=== PATIENT | female | born 1965 | race Caucasian/White ===

== ENCOUNTER → 2019-12-19 15:10 | Outpatient (CLI) | payer OTHER, MEDICAID, SELFPAY ==
[2019-12-19 17:00] LABS: Influenza A - CEPHEID Flu A NEGATIVE (NEGATIVE); Influenza B - CEPHEID Flu B NEGATIVE (NEGATIVE)
[2019-12-21 12:15] LABS: COVID19 Sendout Not Detected (Not Detected)
== END ==
PROVIDERS: Family Provider Internal Medicine; PCP Internal Medicine; Visit Provider Family Medicine
DX: R05 Cough (principal); R06.02 Shortness of breath; R50.9 Fever, unspecified
CPT/HCPCS: 87502; 87635

== ENCOUNTER → 2019-12-19 15:18 | Outpatient (CLI) | payer OTHER, MEDICAID, SELFPAY ==
--- NOTE | 2019-12-19 15:23 | DI.RAD.S_ITS ---
PROCEDURE: XR CHEST 2V INDICATIONS: fever, cough TECHNIQUE: 2 views of the chest were acquired. COMPARISON: [facility], , CHEST 1 VIEW, 11/20/2016, 13:31. FINDINGS: Surgical changes and devices: Cholecystectomy clips. Lungs and pleura: Lungs are clear. No pleural effusions or pneumothorax. Mediastinum: Mediastinal contours are normal. Heart size is mildly enlarged. Bones and chest wall: No suspicious bony abnormalities. Soft tissues appear unremarkable. IMPRESSION: No acute pulmonary process. Dictated by: Claritza Munguia M.D. on 12/19/2019 at 15:40 Approved by: Claritza Munguia M.D. on 12/19/2019 at 15:42
== END ==
PROVIDERS: Family Provider Internal Medicine; PCP Internal Medicine; Referring Provider Family Medicine; Visit Provider Family Medicine
DX: R05 Cough (principal); R50.9 Fever, unspecified; I51.7 Cardiomegaly
CPT/HCPCS: 71046; 87502; 87635

== ENCOUNTER 2019-12-19 18:13 | Emergency (ER) | payer OTHER, MEDICAID, SELFPAY ==
[2019-12-19 18:25] VITALS: BP 117/68; PULSE 94; RESP 18; TEMP 37.3; O2SAT 96; BMI 34.8
--- NOTE | 2019-12-19 18:57 | PC.NURSE ---
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 also reports, generalized body ache. sent from respiratory clinic, flu swab and xray done. sent for furthur evaluations. onset of sxs yesterday though had allergies, had allergy medications. denies nausea,vomiting or diarrhea. denies traveling outside [place] denies exposure with Covid 19 +reports voiding. non smoker
--- NOTE | 2019-12-19 19:11 | ED.URI ---
HPI - URI/Sore Throat <CHARLOTTE Villatoro - Last Filed: 12/19/19 19:58> General Chief Complaint: Upper Respiratory Symptoms Stated Complaint: Fever, cough, lungs hurt, sent by Respiratory Time Seen by Provider: 12/19/19 18:24 Source: patient Mode of arrival: Ambulatory Limitations: no limitations History of Present Illness HPI Narrative: The patient is a 54-year-old female nonsmoker with history of hypothyroid and asthma who presents with a chief complaint of fever, coughs, painful lungs. She states that she was seen at the respiratory clinic and they sent her to the emergency department. She has had a flu swab which came back negative. She states she has had a chest x-ray already today and that she has no pneumonia. Her carotid test is pending. 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 She denies any abdominal pain nausea vomiting or diarrhea. She complains of fevers, but took ibuprofen before she came to the emergency department. Related Data Home Medications Medication Instructions Recorded Confirmed levothyroxine 0.1 mg PO QDAY #0 05/20/13 12/19/19 Previous Rx's Medication Instructions Recorded prednisone 40 mg PO DAILY 3 Days #6 tab 12/19/19 Allergies Allergy/AdvReac Type Severity Reaction Status Date / Time morphine Allergy Verified 12/19/19 18:28 No Known Allergies Allergy Uncoded 12/19/19 18:28 Review of Systems <CHARLOTTE Villatoro - Last Filed: 12/19/19 19:58> Review of Systems Narrative: GENERAL: See HPI HEENT: Denies sinus pain, ear pain, sore throat, difficulty swallowing, dizziness. RESPIRATORY: See HPI CARDIOVASCULAR: Denies chest pain, palpitations, orthopnea, edema, GASTROINTESTINAL: Denies nausea, vomiting, abdominal pain, diarrhea, constipation, melena. : Denies dysuria, frequency, incontinence, hematuria, urinary retention. MUSCULOSKELETAL: denies weakness, joint pain, or bony pain SKIN: Denies rash, skin lesions, or other NEUROLOGIC: Denies weakness, headache, numbness, change in speech, confusion, seizures, incoordination. PSYCHIATRIC: No concerning psychosocial issues. 12 point review of systems is negative except for those stated above Patient History <CHARLOTTE Villatoro - Last Filed: 12/19/19 19:58> Medical History (Updated 12/19/19 @ 19:55 by CHARLOTTE Villatoro) Hypothyroid (Acute) Surgical History (Updated 12/19/19 @ 19:55 by CHARLOTTE Villatoro) S/P cholecystectomy (Acute) Social History Smoking Status: Never smoker Smoking Status: Never smoker Substance Use Type: does not use Exam <CHARLOTTE Villatoro - Last Filed: 12/19/19 19:58> Narrative Exam Narrative: GENERAL: This is a well-nourished, well-developed patient, in appears uncomfortable HEAD: Atraumatic. Normocephalic. No temporal or scalp tenderness. EYES: Pupils equal round and reactive. Extraocular motions intact. No scleral icterus. No injection or drainage. ENT: Nose without bleeding, purulent drainage or septal hematoma. Throat without erythema, tonsillar hypertrophy or exudate. Uvula midline. Airway patent. NECK: Trachea midline. No JVD or lymphadenopathy. Supple, nontender, no meningeal signs. CARDIOVASCULAR: Regular rate and rhythm without murmurs, gallops, or rubs. RESPIRATORY: Decreased to auscultation with diffuse expiratory wheezes bilaterally. Breath sounds equal bilaterally. No rales, or rhonchi. Occasional dry cough. Speaking full sentences.no tripoding. No increased respiratory effort. No accessory muscle use. GASTROINTESTINAL: Abdomen soft, non-tender, nondistended. No hepato-splenomegaly, or palpable masses. No guarding. EXTREMITIES: No clubbing, cyanosis, or edema. No joint tenderness, effusion, or edema noted. BACK: Nontender without deformity or crepitance. No flank tenderness. NEURO: AOx3. SKIN: No rash or erythema on visible skin Initial Vital Signs Initial Vital Signs: Vital Signs Temperature 99.1 F 12/19/19 18:25 Pulse Rate 94 H 12/19/19 18:25 Respiratory Rate 18 12/19/19 18:25 Blood Pressure 117/68 12/19/19 18:25 Pulse Oximetry 96 12/19/19 18:25 <Jessica Sweeney DO - Last Filed: 12/19/19 21:18> Initial Vital Signs Initial Vital Signs: Vital Signs Temperature 99.1 F 12/19/19 18:25 Pulse Rate 94 H 12/19/19 18:25 Respiratory Rate 18 12/19/19 18:25 Blood Pressure 117/68 12/19/19 18:25 Pulse Oximetry 96 12/19/19 18:25 Course <CHARLOTTE Villatoro - Last Filed: 12/19/19 19:58> Orders Ordered: ED Orders 12/19/19 18:42 RT Consult Eval and Treat NOW Vital Signs Vital signs: Vital Signs - 8 hr 12/19/19 18:25 12/19/19 20:11 Temperature 99.1 F Pulse Rate 94 H 77 Respiratory Rate 18 18 Blood Pressure 117/68 Blood Pressure [Right Arm] 117/68 Pulse Oximetry 96 95 <Jessica Sweeney DO - Last Filed: 12/19/19 21:18> Orders Ordered: ED Orders 12/19/19 18:42 RT Consult Eval and Treat NOW Vital Signs Vital signs: Vital Signs - 8 hr 12/19/19 18:25 12/19/19 20:11 Temperature 99.1 F Pulse Rate 94 H 77 Respiratory Rate 18 18 Blood Pressure 117/68 Blood Pressure [Right Arm] 117/68 Pulse Oximetry 96 95 MDM - URI/Sore Throat <CHARLOTTE Villatoro - Last Filed: 12/19/19 19:58> Imaging Data Chest x-ray: Radiologist's Impression: [address] [place] [id number] XRay Report Signed Patient: Mi Nam JMR#: [id number] : 1965Acct:[id number] Age/Sex: 54 / FDate of Service: 12/19/19 Loc: DI Accession Number: [id number] Procedure: XR chest 2V Ordering Provider: Shruthi Melissa D.O. PROCEDURE: XR CHEST 2V INDICATIONS: fever, cough TECHNIQUE: 2 views of the chest were acquired. COMPARISON: [facility], , CHEST 1 VIEW, 11/20/2016, 13:31. FINDINGS: Surgical changes and devices: Cholecystectomy clips. Lungs and pleura: Lungs are clear. No pleural effusions or pneumothorax. Mediastinum: Mediastinal contours are normal. Heart size is mildly enlarged. Bones and chest wall: No suspicious bony abnormalities. Soft tissues appear unremarkable. IMPRESSION: No acute pulmonary process. Dictated by: Claritza Munguia M.D. on 12/19/2019 at 15:40 Approved by: Claritza Munguia M.D. on 12/19/2019 at 15:42 MDM Narrative Medical decision making narrative: The patient is a 54-year-old female who comes to the emergency department complaining of continued wheezing and shortness of breath after being evaluated at a respiratory clinic. The patient is hemodynamically stable in the emergency department, speaking full sentences and oxygenating at 96% on room air. Given that she just had a x-ray done, will not repeat 1 in the emergency department today. Her vital signs have been stable throughout her stay in the emergency department. Of note the patient has been using her inhaler without a spacer, so she received evaluation by respiratory therapist as well as spacer training. Discussed her negative flu and negative x-ray results. Discussed pending covid19 testing, that she is to swell for quarantined until her results come back. Patient states understanding. Given that the patient does have a history of asthma, still feels wheezy and tight, dicussed patient with Dr Sweeney who suggested small dose of steroid for a few days for this patient. Patient states understanding and is okay with plan of care. Given that labs will not change outcome of today's emergency department visit, given the patient's well appearing vitals and good oxygenation, we will hold off on labs today. Discussed at length strict follow-up with primary care provider. Discussed going back to the emergency department for any acute concerns. Patient has no questions or concerns upon discharge and states understanding of return precautions as well as follow-up care. Discharge Plan Departure Patient Disposition: Home Clinical Impression: Viral infection Asthma Qualifiers: Asthma severity: unspecified severity Asthma persistence: unspecified Asthma complication type: uncomplicated Qualified Code(s): J45.909 - Unspecified asthma, uncomplicated Discharge Date/Time: 12/19/19 20:33 Instructions: How to Use a Metered-Dose Inhaler, DI for Asthma -- Adult, DI for Viral Upper Respiratory Infection -- Adult Activity Restrictions/Additional Instructions: Thank you for trusting us with your care today. I sent a small prescription of steroids to [facility] in [place] Please follow-up with primary care provider in the next few days. Please come back to the emergency department for any acute concerns. You have been diagnosed with viral infection, which based on your symptoms, labs and imaging is highly suspicious for coronavirus *What to do: * per recommendations from the CDC and the [facility] Department of Health * stay home except to get medical care. Restrict activities outside your home, except for getting medical care. Do not go to work, school, or public areas. Avoid using public transportation, ride sharing, or taxis. * separate yourself from other people in your home. * call ahead before visiting your doctor * Wear a face mask * Cover your coughs and sneezes * Clean your hands often * Avoid sharing household items * Clean all high-touch services every day * Monitor your symptoms and seek prompt medical attention if your illness is worsening, particularly with difficulty in breathing. As discussed, your covered testing is pending. We will call you with the results come in. Prescriptions: New prednisone 20 mg tablet 40 mg PO DAILY 3 Days Qty: 6 RF: 0 No Action levothyroxine 100 MCG tablet 0.1 mg PO QDAY Qty: 0 RF: 0 Referrals: Deo Farfan MD [Primary Care Provider] - Stand Alone Forms: Work Release Note
[2019-12-19 20:11] VITALS: BP 117/68; PULSE 77; RESP 18; O2SAT 95
== END 2019-12-19 20:33 | disposition home or self-care (01) ==
PROVIDERS: Emergency Provider Nurse Practitioner Family; Family Provider Internal Medicine; PCP Internal Medicine
DX: J45.909 Unspecified asthma, uncomplicated (principal); B34.9 Viral infection, unspecified; R50.9 Fever, unspecified; R05 Cough; I51.7 Cardiomegaly; R06.02 Shortness of breath
CPT/HCPCS: 71046; 87502; 87635; 99282

== ENCOUNTER 2021-05-08 16:42 | Emergency (ER) | payer OTHER, MEDICAID, SELFPAY ==
[2021-05-08] VITALS (8 sets, daily range): BP systolic 109–180; BP diastolic 66–92; PULSE 78–99; RESP 20–35; TEMP 37.7–38.8; O2SAT 91–93; BMI 34.8
[2021-05-08] MEDS: ACETAMINOPHEN 325 MG TABLET 650 MG PO (17:13)
--- NOTE | 2021-05-08 17:16 | DI.RAD.S_ITS ---
PROCEDURE: XR CHEST 1V INDICATIONS: suspected sepsis TECHNIQUE: One view of the chest was acquired. COMPARISON: [facility], CR, XR CHEST 2V, 12/19/2019, 15:16. FINDINGS: Surgical changes and devices: None. Lungs and pleura: Patchy bilateral pulmonary infiltrates are accentuated by low lung volumes. Mediastinum: Mediastinal contours appear normal. Heart size is normal, but accentuated by low lung volume. Bones and chest wall: No suspicious bony lesions. Overlying soft tissues appear unremarkable. IMPRESSION: Patchy bilateral pulmonary infiltrates particularly in the left lung, consistent with pneumonia Approved by: Joe Mendez M.D. on 05/08/2021 at 17:06
[2021-05-08] MEDS: IBUPROFEN 400 MG TABLET PO (17:35)
[2021-05-08] MEDS: SODIUM CHLORIDE 0.9% 1,000 ML 1000 ML IV (17:45)
--- NOTE | 2021-05-08 18:16 | ED.SOB ---
HPI - SOB/Dyspnea General Chief Complaint: Shortness of Breath/Dyspnea Stated Complaint: COVID POSITIVE, FEVER, HARD TO BREATHE Time Seen by Provider: 05/08/21 17:57 Source: patient Mode of arrival: Family Vehicle Limitations: no limitations History of Present Illness HPI Narrative: Patient is a 55-year-old female with history of asthma presenting with known COVID she is currently unvaccinated. She states she was diagnosed 5 days ago, and started having symptoms 8 days ago. He states that her lungs hurt and she has had ongoing fever for multiple days in her throat. She has not been checking her oxygen at currently in the emergency department she has an oxygen of 91-92% on the monitor. She says that she has been taking prednisone 50 mg once daily for 5 days but she finished that and has been using her albuterol inhaler regularly. She generally feels weak tired and with body aches. Related Data Home Medications Medication Instructions Recorded Confirmed levothyroxine 100 mcg tablet 0.1 mg PO QDAY #0 05/20/13 12/19/19 Allergies Allergy/AdvReac Type Severity Reaction Status Date / Time morphine Allergy Verified 05/08/21 17:05 Review of Systems Review of Systems Narrative: GENERAL: + fever, + body aches HEENT: Denies sinus pain, ear pain, sore throat, difficulty swallowing, neck pain RESPIRATORY: See HPI CARDIOVASCULAR: Denies chest pain, palpitations, orthopnea, edema GASTROINTESTINAL: Denies nausea, vomiting, abdominal pain, diarrhea, constipation, melena. : Denies dysuria, frequency, incontinence, hematuria, urinary retention, flank pain. MUSCULOSKELETAL: Denies weakness, joint pain, or bony pain SKIN: No rash, no erythema, no pruritus NEUROLOGIC: Denies weakness, dizziness, headache, numbness, change in speech, confusion PSYCHIATRIC: No concerning psychosocial issues. 12 point review of systems is negative except for those stated above and HPI Patient History Medical History (Updated 05/08/21 @ 19:15 by Sharon Cervantes DO) Hypothyroid Surgical History (Updated 12/19/19 @ 19:55 by JEANINE Villatoro-) S/P cholecystectomy Social History Smoking Status: Never smoker Smoking Status: Never smoker Substance Use Type: does not use Exam Initial Vital Signs Initial Vital Signs: Vital Signs Temperature 102 F H 05/08/21 16:58 Pulse Rate 99 H 05/08/21 16:58 Respiratory Rate 35 H 05/08/21 16:58 Blood Pressure 180/92 H 05/08/21 16:58 Pulse Oximetry 93 05/08/21 16:58 GENERAL: 55-year-old female who generally does not feel well HEENT: Head atraumatic,EOMI, pupils reactive, face symmetric, moist mucous membranes CARDIOVASCULAR: Regular rate and rhythm without murmurs, rubs or gallops. RESPIRATORY: Breath sounds equal bilaterally, no wheezes rales or rhonchi. Speaks in full sentences without difficulty ABDOMEN: Soft, nontender. Normoactive bowel sounds all 4 quadrants. No guarding or rebound. EXTREMITIES: Normal range of motion, no clubbing or edema. Neurovascularly intact NEUROLOGICAL: Alert and oriented x4.Normal gait and speech. SKIN: Warm, dry, no laceration, no petechiae, no rashes or lesions. Course Orders Ordered: Discontinued Medications Acetaminophen (Acetaminophen 325 Mg Tablet) 650 mg PO NOW ONE Stop: 05/08/21 17:11 Last Admin: 05/08/21 17:13 Dose: 650 mg Documented by: ALENA Sodium Chloride (Normal Saline 0.9%) 1,000 mls @ 1,000 mls/hr IV BOLUS ONE Stop: 05/08/21 18:15 Last Infusion: 05/08/21 19:00 Dose: 0 mls/hr Documented by: Admin: 05/08/21 17:45 Dose: 1,000 mls/hr Documented by: ATACIERAOR Ibuprofen (Ibuprofen 400 Mg Tablet) 400 mg PO NOW ONE Stop: 05/08/21 17:12 Last Admin: 05/08/21 17:35 Dose: 400 mg Documented by: ALENA Vital Signs Vital signs: Vital Signs - 8 hr 05/08/21 16:58 05/08/21 17:13 05/08/21 17:35 Temperature 102 F H 102 F H 102 F H Pulse Rate 99 H Respiratory Rate 35 H Blood Pressure 180/92 H Pulse Oximetry 93 MDM - SOB/Dyspnea Lab Data Result diagrams: 05/08/21 18:00 05/08/21 18:00 Labs: Lab Results 05/08/21 05/08/21 05/08/21 Range/Units 18:00 18:00 18:00 WBC 3.4 L (4.5-11.0) X10^3/uL RBC 4.24 (4.0-5.2) X10^6/uL Hgb 12.3 (12.0-16.0) g/dL Hct 36.2 (36-46) % MCV 85.3 (80-100) fL MCH 29.0 (26-34) PG MCHC 34.0 (30-36) % RDW 12.8 (11.6-14.8) % Plt Count 145 L (150-400) X10^3/uL Neut % (Auto) 66.8 (50-75) % Lymph % (Auto) 26.6 (25-40) % [place] % (Auto) 6.2 (3-14) % Eos % (Auto) 0.1 L (2-4) % Baso % (Auto) 0.3 (0-2) % Neut # (Auto) 2300 (6974-6130) /uL Lymph # (Auto) 900 L (9623-6457) /uL [place] # (Auto) 200 (0-900) /uL Eos # (Auto) 0 (0-450) /uL Baso # (Auto) 0 (0-100) /uL Sodium 135 L (137-145) mmol/L Potassium 3.3 L (3.4-5.1) mmol/L Chloride 103 (98-107) mmol/L Carbon Dioxide 25 (22-32) mmol/L BUN 11 (7-17) mg/dL Creatinine 0.55 (0.52-1.04) mg/dL Estimated GFR > 60.0 (>60) mL/min BUN/Creatinine Ratio 20.0 (6-22) Glucose 99 (70-100) mg/dL Lactate 0.8 (0.7-2.1) mmol/L Calcium 8.7 (8.4-10.2) mg/dL Total Bilirubin 0.3 (0.2-1.3) mg/dL AST 59 H (14-36) IU/L ALT 89 H (<35) IU/L Alkaline Phosphatase 63 (38-126) U/L Total Protein 7.0 (6.3-8.2) g/dL Albumin 4.0 (3.5-5.0) g/dL Globulin 3.0 (1.7-4.1) g/dL Albumin/Globulin Ratio 1.3 (1.0-2.8) Lipase 53 (23-300) U/L Procalcitonin 0.06 (<0.5) ng/mL Imaging Data Chest x-ray: Radiologist's Impression: PROCEDURE: XR CHEST 1V INDICATIONS: suspected sepsis TECHNIQUE: One view of the chest was acquired. COMPARISON: [facility], CR, XR CHEST 2V, 12/19/2019, 15:16. FINDINGS: Surgical changes and devices: None. Lungs and pleura: Patchy bilateral pulmonary infiltrates are accentuated by low lung volumes. Mediastinum: Mediastinal contours appear normal. Heart size is normal, but accentuated by low lung volume. Bones and chest wall: No suspicious bony lesions. Overlying soft tissues appear unremarkable. IMPRESSION: Patchy bilateral pulmonary infiltrates particularly in the left lung, consistent with pneumonia Approved by: Joe Mendez M.D. on 05/08/2021 at 17:06 ECG Data Interpretation: Normal sinus rhythm rate 97 SC interval 142 QRS is 142 QTC 485 right bundle-branch block noted, similar to previous EKG no ST changes noted today. MDM Narrative Medical decision making narrative: Patient overall appears to not feel well however lungs are clear, oxygen level is over 90%. I Have discussed with her home monitoring in regards to COVID and how she may decompensate and may require admission. She understands. She would like to get vaccinated when this infection passes. Discharge Plan Departure Patient Disposition: Home Clinical Impression: COVID-19 Instructions: DI for COVID-19 (Suspected or Confirmed ) Activity Restrictions/Additional Instructions: * if you have not yet been vaccinated is still recommended and encouraged that you do so once your infection has passed At home: -Monitor oxygen with pulse oximeter, should be more than 90%. -Wash hands frequently. -Stay isolated at home please follow the isolation instructions below. -Increase fluid intake. -you may take Tylenol as directed if needed for pain or fever Emergency warning signs for COVID-19: - Difficulty breathing or shortness of breath, oxygen less than 90% - Persistent pain or pressure in the chest - New confusion or inability to arouse - Bluish lips or face CDC Guidelines for home isolation: - Stay away from others - Limit contact with pets and animals: If you must care for a pet, wash your hands before and after interacting with them - Wear a mask while in public all places - Cover your mouth and nose with a tissue when you cough or sneeze. Dispose of tissues in a lined trash can and wash your hands immediately with soap and water for at least 20 seconds. If soap and water are not available, clean hands with alcohol-based hand x ray service technician that contains at least 60% alcohol. - Clean your hands often with soap and water for at least 20 seconds - Avoid touching your eyes, nose and mouth with unwashed hands - Do not share dishes, drinking glasses, cups, eating utensils, towels, or bedding with other people in your home. After using these items, wash them thoroughly with soap and water or put in the flight purser. - Clean high-touch surfaces in your isolation area (?sick room? and bathroom) every day; let a caregiver clean and disinfect high-touch surfaces in other areas of the home. Clean the area or item with soap and water or another detergent if it is dirty. Then, use a household disinfectant. Prescriptions: No Action levothyroxine 100 MCG tablet 0.1 mg PO QDAY Qty: 0 RF: 0 Referrals: Deo Farfan MD [Primary Care Provider] -
[2021-05-08 18:18] LABS: Add Manual Diff / Slide Review NO; Basophils Absolute Auto 0 /uL (0-100); Basophils Percent Auto 0.3 % (0-2); Eosinophils Absolute Auto 0 /uL (0-450); Eosinophils Percent Auto 0.1 % (2-4); Hematocrit 36.2 % (36-46); Hemoglobin 12.3 g/dL (12.0-16.0); Lymphocytes Absolute Auto 900 /uL (1100-4500); Lymphocytes Percent Auto 26.6 % (25-40); Mean Corpuscular Volume 85.3 fL (80-100); Monocytes Absolute Auto 200 /uL (0-900); Monocytes Percent Auto 6.2 % (3-14); Neutrophils Absolute Auto 2300 /uL (1500-7000); Neutrophils Percent Auto 66.8 % (50-75); Platelet Count 145 X10^3/uL (150-400); Red Blood Cell Count 4.24 X10^6/uL (4.0-5.2); Red Cell Distribution Width 12.8 % (11.6-14.8); White Blood Cell Count 3.4 X10^3/uL (4.5-11.0)
[2021-05-08 18:28] LABS: Lactate (Lactic Acid) 0.8 mmol/L (0.7-2.1)
[2021-05-08 18:29] LABS: Alanine Aminotransferase 89 IU/L (<35); Albumin Globulin Ratio 1.3 (1.0-2.8); Alkaline Phosphatase 63 U/L (38-126); Aspartate Aminotransferase 59 IU/L (14-36); Bilirubin Total 0.3 mg/dL (0.2-1.3); Blood Urea Nitrogen 11 mg/dL (7-17); Calcium 8.7 mg/dL (8.4-10.2); Carbon Dioxide 25 mmol/L (22-32); Chloride 103 mmol/L (98-107); Estimated Glomerular Filt Rate > 60.0 mL/min (>60); Glucose 99 mg/dL (70-100); HEMOLYSIS < 15 (0-50); Lipase 53 U/L (23-300); Potassium 3.3 mmol/L (3.4-5.1); Sodium 135 mmol/L (137-145)
[2021-05-08 18:45] LABS: Procalcitonin 0.06 ng/mL (<0.5)
== END 2021-05-08 19:40 | disposition home or self-care (01) ==
PROVIDERS: Emergency Medicine; Emergency Provider Emergency Medicine; Family Provider Internal Medicine; PCP Internal Medicine
DX: U07.1 COVID-19 (principal); R06.00 Dyspnea, unspecified
CPT/HCPCS: 36415; 71045; 80053; 83605; 83690; 84145; 85025; 87040; 93005; 93010; 96360; 99284

== ENCOUNTER 2025-09-16 17:50 | Emergency (ER) | payer MEDICAID, SELFPAY ==
--- OUTSIDE RECORDS SUMMARY | 2025-09-16 17:53 | XMS_ITS | Encounter Summary ---
Author Organization [facility] Address [address] [place] [address] Care Team Providers Care Tenoner Operator Name Role Phone Guilhermedinorah Tyrone Jeseniabrad Primary Care Provider Encounter Details Date Type Department Care Team (Late st Contact Info) Description 06/18/2021 Orders Only [facility] [address] [place] [phone] Ramirez Monreal DO [address] [phone] Menopausal symptom Social History Tobacco Use Types Packs/Day Years Used Date Smoking Tobacco: Never Smokeless Tobacco: Never Alcohol Use Standard Drinks/Week Comments Yes 3 (1 standard drink = 0.6 oz pur e alcohol) PHQ-2 Answer Date Recorded PHQ-2 Score 2 02/11/2021 Comments No Sex and Gender Information Value Date Recorded Sex Assigned at Not on file Legal Sex Female 5:29 PM PDT Gender Identity Not on file Sexual Orientation Not on file documented as of this encounter Plan of Treatment Not on file documented as of this encounter Procedures Procedure Name Priority Date/Time Associated Diagnosis Comments FOLLICLE STIMULATING HORMONE AND LUTENIZING HORMONE Routine 06/17/2021 7:55 AM PDT Menopausal symptom documented in this encounter Results * Follicle Stimulating Hormone and Lutenizing Hormone (06/17/2021 7:55 AM PDT) LH 17.9 mIU/mL REFERENCE [facility] 001 Comment: Adult Female: Follicular phase 2.4 - 12.6 Ovulation phase 14.0 - 95.6 Luteal phase 1.0 - 11.4 Postmenopausal 7.7 - 58.5 FSH 51.1 mIU/mL REFERENCE [facility] 001 Comment: Adult Female: Follicular phase 3.5 - 12.5 Ovulation phase 4.7 - 21.5 Luteal phase 1.7 - 7.7 Postmenopausal 25.8 - 134.8 Blood Venous blood / Unknown 06/17/2021 7:55 AM PDT 06/16/2021 9:00 PM PDT Narrative [facility] 06/18/2021 6:06 AM PDT Performed at: 01 - [facility] [place] [address], [place], [place] [id number] Sound Assistant: Raymond Metz MD, Phone: [phone] us Ramirez Monreal DO LAB BLOOD ORDERABLES Final Resul t [facility] [address] [phone], REFERENCE [facility] 001 documented in this encounter Visit Diagnoses Diagnosis Menopausal symptom documented in this encounter Additional Health Concerns Infection Onset Date Last Indicated Resolved Time COV19 CONFIRMED/AERO 05/03/2021 05/03/2021 021 2:36 AM PDT documented as of this encounter Care Teams Tenoner Operator Relationship Specialty Start Date End Date Tyrone Burnett DO [address] [place] [phone] PCP - General Family Medicine 08/28/24 documented as of this encounter
[2025-09-16 17:56] VITALS: BP 141/90; PULSE 81; RESP 18; TEMP 36.9; O2SAT 99; BMI 35.9
--- NOTE | 2025-09-16 18:01 | DI.RAD.S_ITS ---
PROCEDURE: XR CHEST 1V INDICATIONS: Chest Pain TECHNIQUE: One view of the chest was acquired. COMPARISON: [facility], CR, XR CHEST 1V, 05/08/2021, 17:27. [facility], CR, XR CHEST 2V, 12/19/2019, 15:16. FINDINGS: Surgical changes and devices: None. Lungs and pleura: Lungs are clear. No pleural effusions or pneumothorax. Mediastinum: Mediastinal contours appear normal. Heart size is normal. Bones and chest wall: No suspicious bony lesions. Overlying soft tissues appear unremarkable. IMPRESSION: No acute cardiopulmonary abnormality is seen. Dictated by: Rahul [place] M.D. on 09/16/2025 at 18:29 Approved by: Rahul [place] M.D. on 09/16/2025 at 18:29
--- NOTE | 2025-09-16 18:03 | EKG_ITS ---
[place] [address] [address] [place] [id number] Test Date: 2025-09-16 Pat Name: Mi Nam Department: Room: Gender: Female Field Training Agent: : 1965 Requested By: Order Number: [id number] Reading MD: Carson Palafox MD Measurements Intervals [place] Rate: 84 P: 106 FL: 152 QRS: -33 QRSD: 150 T: -29 QT: 412 QTc: 486 Interpretive Statements Normal sinus rhythm Left axis deviation Right bundle branch block T wave abnormality, consider lateral ischemia NO PRIOR TRACING Electronically Signed On 09-17-2025 7:52:12 PST by Carson Palafox MD
[2025-09-16] MEDS: ASPIRIN 81 MG CHEW TAB 324 MG PO (18:04)
--- NOTE | 2025-09-16 18:10 | ED.CHESTPAIN ---
HPI - Chest Pain General Chief Complaint: Chest Pain Stated Complaint: chest pain, x 2months PC ref today Time Seen by Provider: 09/16/25 18:10 Source: patient Mode of arrival: Ambulatory Limitations: no limitations History of Present Illness HPI narrative: 59-year-old female history of asthma, presents with chest pain for the past few months after battling viral URI that has improved but not completely resolved. Pt reports heaviness seen by pcp today referred for further work up today here. Pt states it is sore to touch her chest at times. Patient denies back pain, radiating symptoms, nausea, vomiting, diarrhea, diaphoresis, abdominal pain, leg pain, leg swelling, recent long-distance travel. Other than what is stated 14 point review of system is negative. Related Data Home Medications ?Medication ?Instructions ?Recorded ?Confirmed levothyroxine 100 mcg tablet 0.1 mg PO QDAY ##0 05/20/13 12/19/19 Allergies Allergy/AdvReac Type Severity Reaction Status Date / Time morphine Allergy Verified 05/08/21 17:05 Review of Systems Review of Systems ROS Unobtainable: All systems reviewed & are unremarkable except as noted in HPI and below Patient History Medical History (Updated 09/16/25 @ 20:42 by Carson Rubio DO) Hypothyroid Surgical History (Updated 12/19/19 @ 19:55 by [facility] S/P cholecystectomy Social History Smoking Status: Never smoker Smoking Status: Never smoker Exam Narrative Exam Narrative: GENERAL: [59] year old patient appears stated age. Well-developed patient, in mild distress. HEAD: Atraumatic. Normocephalic. EYES: Pupils equal round and reactive. Extraocular motions intact. No scleral icterus. No injection or drainage. ENT: Nose without bleeding, purulent drainage. Throat without erythema, tonsillar hypertrophy or exudate. Airway patent. NECK: Trachea midline. Non tender CARDIOVASCULAR: Regular rate and rhythm without murmurs, gallops, or rubs. RESPIRATORY: Clear to auscultation. Breath sounds equal bilaterally. No wheezes, rales, or rhonchi. GASTROINTESTINAL: Abdomen soft, non-tender, nondistended. EXTREMITIES: No edema or joint tenderness. BACK: Nontender without deformity or crepitance. No flank tenderness. NEURO: AOx3. SKIN: No rash or erythema of visible areas Initial Vital Signs Initial Vital Signs: Vital Signs Temperature 98.4 F 09/16/25 17:56 Pulse Rate 81 09/16/25 17:56 Respiratory Rate 18 09/16/25 17:56 Blood Pressure 141/90 H 09/16/25 17:56 Pulse Oximetry 99 09/16/25 17:56 Oxygen Delivery Method Room Air 09/16/25 17:56 Scores HEART Score Heart Score history: Slightly Suspicious Heart Score EKG: Normal Heart Score Age: 45-64 years old Heart Score risk factors: No known risk factors Heart Score troponin: < or = to normal limit Heart Score Total: 1 Course Orders Ordered: ED Orders 09/16/25 18:01 XR chest 1V Stat EKG-12 Lead Stat 09/16/25 18:15 Complete Blood Count AUTO DIFF Stat Comprehensive Metabolic Panel Stat Lipase Stat Magnesium Stat NT-proBNP (BNP-Adult 18+) Stat PTT Partial Thromboplastin Gui Stat Prothrombin Time INR Stat Troponin & CK Cardiac Panel Stat 09/16/25 18:19 Covid-19 + FLU A/B + RSV - PCR Stat 09/16/25 19:43 Troponin I Stat Discontinued Medications Aspirin (Aspirin 81 Mg Chew Tab) 324 mg PO NOW ONE Stop: 09/16/25 18:01 Last Admin: 09/16/25 18:04 Dose: 324 mg Documented By: SCAR Vital Signs Vital signs: Vital Signs - 8 hr 09/16/25 17:56 Temperature 98.4 F Pulse Rate 81 Respiratory Rate 18 Blood Pressure 141/90 H Pulse Oximetry 99 Oxygen Delivery Method Room Air MDM - Chest Pain Lab Data 09/16/25 18:15 09/16/25 18:15 Labs: Lab Results 09/16/25 Range/Units 18:15 WBC 6.2 (4.5-11.0) X10^3/uL RBC 4.61 (4.0-5.2) X10^6/uL Hgb 13.2 (12.0-16.0) g/dL Hct 39.2 (36-46) % MCV 85.1 (80-100) fL MCH 28.7 (26-34) PG MCHC 33.7 (30-36) % RDW 13.5 (11.6-14.8) % Plt Count 224 (150-400) X10^3/uL Neut % (Auto) 57.0 (50-75) % Lymph % (Auto) 32.3 (25-40) % [place] % (Auto) 7.5 (3-14) % Eos % (Auto) 2.7 (2-4) % Baso % (Auto) 0.5 (0-2) % Neut # (Auto) 3500 (2570-1073) /uL Lymph # (Auto) 2000 (5988-6492) /uL [place] # (Auto) 500 (0-900) /uL Eos # (Auto) 200 (0-450) /uL Baso # (Auto) 0 (0-100) /uL PT 11.2 (9.4-12.5) SECONDS INR 1.0 (0.9-1.3) APTT 30 (25.1-36.5) SECONDS Sodium 142 (137-145) mmol/L Potassium 3.6 (3.4-5.1) mmol/L Chloride 107 (98-107) mmol/L Carbon Dioxide 27 (22-32) mmol/L BUN 13 (7-17) mg/dL Creatinine 0.67 (0.52-1.04) mg/dL Estimated GFR > 60 (>60) mL/min BUN/Creatinine Ratio 19.4 (6-22) Glucose 85 (70-99) mg/dL Calcium 8.9 (8.4-10.2) mg/dL Magnesium 2.0 (1.6-2.3) mg/dL Total Bilirubin 0.2 (0.2-1.3) mg/dL AST 25 (14-36) IU/L ALT 24 (<35) IU/L Alkaline Phosphatase 61 (38-126) U/L Total Creatine Kinase 109 (30-135) U/L Troponin I < 0.012 (0.01-0.034) ng/mL NT-Pro-B Natriuret Pep 21 (<125) pg/mL Total Protein 7.4 (6.3-8.2) g/dL Albumin 4.7 (3.5-5.0) g/dL Globulin 2.7 (1.7-4.1) g/dL Albumin/Globulin Ratio 1.7 (1.0-2.8) Lipase 44 (23-300) U/L Imaging Data Chest x-ray: Radiologist's Impression: [address] [address] XRay Report Signed Patient: Mi Nam MR#: [id number] : 1965 Acct:[id number] Age/Sex: 59 / F Date of Service: 09/16/25 Loc: ED Accession Number: [id number] Procedure: XR chest 1V Ordering Provider: Carson Rubio D.O. PROCEDURE: XR CHEST 1V INDICATIONS: Chest Pain TECHNIQUE: One view of the chest was acquired. COMPARISON: [facility], CR, XR CHEST 1V, 05/08/2021, 17:27. [facility], CR, XR CHEST 2V, 12/19/2019, 15:16. FINDINGS: Surgical changes and devices: None. Lungs and pleura: Lungs are clear. No pleural effusions or pneumothorax. Mediastinum: Mediastinal contours appear normal. Heart size is normal. Bones and chest wall: No suspicious bony lesions. Overlying soft tissues appear unremarkable. IMPRESSION: No acute cardiopulmonary abnormality is seen. ECG Data Interpretation: NSR HR 84 TN 152 QRS [address]-t wve change MDM Narrative Medical decision making narrative: All lab work, vital signs, nurse triage note, medication list, previous ER visits, and all imaging studies reviewed. 2 sets troponin normal. EKG normal sinus rhythm right bundle branch block. Chest x-ray showed no acute process. Differential diagnosis STEMI NSTEMI unstable angina COVID flu RSV pneumonia electrolyte derangement. While patient follow up with PCP for outpatient referral for stress test and echo Discharge Plan Departure Patient Disposition: Home Clinical Impression: Chest pain Instructions: DI for Chest Pain Activity Restrictions/Additional Instructions: Return with new or worsening symptoms. Follow up with PCP for echo and outpatient referral for stress test. Call office for appointment Prescriptions: No Action levothyroxine 100 MCG tablet 0.1 mg PO QDAY Qty: 0 Stand Alone Forms: Patient Portal/API
[2025-09-16 18:27] LABS: Add Manual Diff / Slide Review NO; Hematocrit 39.2 % (36-46); Hemoglobin 13.2 g/dL (12.0-16.0); Lymphocytes Absolute Auto 2000 /uL (1100-4500); Mean Corpuscular HGB Conc 33.7 % (30-36); Mean Corpuscular Hemoglobin 28.7 PG (26-34); Mean Corpuscular Volume 85.1 fL (80-100); Platelet Count 224 X10^3/uL (150-400)
[2025-09-16 18:45] LABS: INR 1.0 (0.9-1.3); Prothrombin Time 11.2 SECONDS (9.4-12.5)
[2025-09-16 18:48] LABS: PTT Partial Thromboplastin Tim 30 SECONDS (25.1-36.5)
[2025-09-16 18:55] LABS: Alanine Aminotransferase 24 IU/L (<35); Albumin 4.7 g/dL (3.5-5.0); Albumin Globulin Ratio 1.7 (1.0-2.8); Alkaline Phosphatase 61 U/L (38-126); Blood Urea Nitrogen 13 mg/dL (7-17); Calcium 8.9 mg/dL (8.4-10.2); Carbon Dioxide 27 mmol/L (22-32); Chloride 107 mmol/L (98-107); Creatine Kinase 109 U/L (30-135); Estimated Glomerular Filt Rate > 60 mL/min (>60); Globulin 2.7 g/dL (1.7-4.1); Glucose 85 mg/dL (70-99); HEMOLYSIS < 15 (0-50); Lipase 44 U/L (23-300); Magnesium 2.0 mg/dL (1.6-2.3); Potassium 3.6 mmol/L (3.4-5.1); Sodium 142 mmol/L (137-145); Total Protein 7.4 g/dL (6.3-8.2)
[2025-09-16 19:06] LABS: NT-proBNP (BNP-Adult 18+) 21 pg/mL (<125); Troponin I < 0.012 ng/mL (0.01-0.034)
[2025-09-16 20:10] LABS: Influenza A - CEPHEID Flu A NEGATIVE (NEGATIVE); Influenza B - CEPHEID Flu B NEGATIVE (NEGATIVE)
[2025-09-16 20:17] LABS: COVID-19 CEPHEID 4-PLEX PCR Negative (Negative)
[2025-09-16 20:25] LABS: Troponin I < 0.012 ng/mL (0.01-0.034)
[2025-09-16 20:47] VITALS: BP 131/79; PULSE 71; RESP 16; TEMP 36.9; O2SAT 100
== END 2025-09-16 21:03 | disposition home or self-care (01) ==
PROVIDERS: Emergency Provider Family Medicine; Family Provider Internal Medicine
DX: R07.89 Other chest pain (principal)
CPT/HCPCS: 36415; 71045; 80053; 82550; 83690; 83735; 83880; 84484; 85025; 85610; 85730; 87637; 93005; 93010; 99284